=== PATIENT | male | born 1990 ===

== ENCOUNTER 2017-01-10 15:14 | Emergency (ER) | payer OTHER ==
[2017-01-10 16:11] VITALS: BP 138/78; PULSE 80; RESP 16; TEMP 97.6; O2SAT 100
[2017-01-10] MEDS ORDERED: TDAP Vaccine 0.5 mL Syr IM ONE (16:40)
--- NOTE | 2017-01-10 16:40 | ED PDOC ---
Upper Extremity Pain/Injury Time Seen by Provider: 01/10/17 17:04 Chief Complaint (Nursing): Upper Extremity Problem/Injury Chief Complaint (Provider): Upper Extremity Injury History Per: Patient History/Exam Limitations: no limitations Onset/Duration Of Symptoms: Hrs (x5) Current Symptoms Are (Timing): Still Present Additional Complaint(s): Rupert Dawkins is a 26 year old male, with no past medical history, who presents to the emergency department complaining of right shoulder injury. Patient report a hammer fell on his shoulder at a construction site prior to arrival. He states he has a full range of motion and denies any numbness, tingling, chest pain, and shortness of breath. No further medical complaints. PMD: None provided Past Medical History Reviewed: Historical Data, Nursing Documentation, Vital Signs Vital Signs: Last Vital Signs Temp 97.6 F 01/10/17 16:07 Pulse 80 01/10/17 16:07 Resp 16 01/10/17 16:07 BP 138/78 01/10/17 16:07 Pulse Ox 100 01/10/17 16:07 - Medical History PMH: No Chronic Diseases - Family History Family History: States: Unknown Family Hx - Home Medications Home Medications: Ambulatory Orders Medication Instructions Recorded Cyclobenzaprine [Cyclobenzaprine 10 mg PO BID #14 tab 01/10/17 HCl] Ibuprofen [Motrin] 400 mg PO Q6 #30 tab 01/10/17 - Allergies Allergies/Adverse Reactions: Allergies Allergy/AdvReac Type Severity Reaction Status Date / Time No Known Allergies Allergy Verified 01/10/17 16:07 Review of Systems ROS Statement: Except As Marked, All Systems Reviewed And Found Negative Cardiovascular: Negative for: Chest Pain Respiratory: Negative for: Shortness of Breath Musculoskeletal: Positive for: Shoulder Pain (Right) Neurological: Negative for: Numbness, Other (tingling) Physical Exam - Reviewed Nursing Documentation Reviewed: Yes Vital Signs Reviewed: Yes - Physical Exam Appears: Positive for: Well, Non-toxic, No Acute Distress Head Exam: Positive for: ATRAUMATIC, NORMAL INSPECTION, NORMOCEPHALIC Skin: Positive for: Normal Color, Warm, Dry Eye Exam: Positive for: EOMI, Normal appearance, PERRL Neck: Positive for: Normal, Painless ROM Cardiovascular/Chest: Positive for: Regular Rate, Rhythm Respiratory: Positive for: CNT, Normal Breath Sounds Extremity: Positive for: Normal ROM (good pronation and supination ), Deformity (right shoulder deformity and abrasion noted, no active bleeding), Other ( neurovascular intact) Neurologic/Psych: Positive for: Alert, Oriented - ECG O2 Sat by Pulse Oximetry: 100 (RA) Pulse Ox Interpretation: Normal Medical Decision Making Medical Decision Making: Initial Impression: Right Shoulder Injury Initial Plan: --Boostrix Vaccine Inj 0.5 ml IM Patient received tetanus injection and wound was properly sterilized and treated with bacitracin. pt d/c with flexril and motrin for pain advsied to have pmd eval. Disposition - Clinical Impression Clinical Impression: Shoulder pain, Abrasion - Patient ED Disposition Is Patient to be Admitted: No Counseled Patient/Family Regarding: Diagnosis, Need For Followup, Rx Given - Disposition Disposition: Routine/Home Disposition Time: 17:05 Condition: STABLE Prescriptions: Cyclobenzaprine [Cyclobenzaprine HCl] 10 mg PO BID #14 tab Ibuprofen [Motrin] 400 mg PO Q6 #30 tab Instructions: Abrasion (ED), Shoulder Sprain (ED) Forms: [employer] ([place]), [facility] ED School/Work Excuse
== END 2017-01-10 17:19 | disposition home or self-care (01) ==
LOC: H.ER 15:14
DX: S49.91XA Unspecified injury of right shoulder and upper arm, initial encounter (principal); W22.8XXA Striking against or struck by other objects, initial encounter; Y99.0 Civilian activity done for income or pay